=== PATIENT | female | born 1940 | race Caucasian/White ===

== ENCOUNTER → 2020-10-02 10:21 | Outpatient (CLI) | payer OTHER, SELFPAY ==
[2020-10-02 11:12] LABS: COVID19 -Nasal RAPID Negative (Negative)
== END ==
PROVIDERS: PCP Family Medicine; Visit Provider Student in an Organized Health Care Education/Training Program
DX: Z01.812 Encounter for preprocedural laboratory examination (principal); Z20.822 Contact with and (suspected) exposure to COVID-19
CPT/HCPCS: 87635

== ENCOUNTER 2020-10-05 08:01 | Observation (INO) | payer OTHER, SELFPAY ==
[2020-09-20 13:32] VITALS: BMI 30.1
[2020-10-04] VITALS (16 sets, daily range): BP systolic 138–158; BP diastolic 56–80; PULSE 70–85; RESP 10–100; TEMP 35.7–37; O2SAT 11–100; BMI 30.1
[2020-10-04] MEDS: LACTATED RINGERS 1,000 ML 42 ML IV ×2 (12:39→16:40)
--- NOTE | 2020-10-04 12:57 | SUR.PREOP ---
Pt ready for surgery. Call light in reach.
--- NOTE | 2020-10-04 13:59 | PM.PREOP ---
Pre-operative Note COVID-19 COVID-19 status: Negative Result date/Date tested (Pos, Neg/Pending): 10/02/20 Interval Note History & Physical reviewed/Exam performed by Physician: Yes Changes to H&P: No
--- NOTE | 2020-10-04 14:46 | SUR.OPER ---
Prone on spine table, head in foam head support, padded chest and pelvic supports, gel pad at knees, lower legs supported by pillows; nipples, genitalia and toes free of pressure, arms secured on foam padded arm boards at <90 degrees abduction. Tape over blanket at thigh secured to table.
[2020-10-04] MEDS: BUPIVACAINE 0.5% W/ EPI (PF) 30 ML VIAL INJ (14:55)
[2020-10-04] MEDS: BUPIVACAINE LIPOSOME 266 MG/20 ML VIAL INJ (14:56)
[2020-10-04] MEDS: CEFAZOLIN 1 GM VIAL 2 GM IV ×2 (14:57→21:53)
--- NOTE | 2020-10-04 17:50 | DI.RAD.S_ITS ---
PROCEDURE: XR LUMBAR SPINE 2-3V INDICATIONS: L3-4M L4-5 TLIF TECHNIQUE: 2 views of the lumbar spine were acquired. COMPARISON: [facility], CR, L-SPINE 4V PLUS BENDING, 12/30/2007, 9:10. FINDINGS: Spot fluoroscopic intraoperative findings demonstrating posterior spinal fixation with interbody cage grafts at the level of L3-L4 and L4-L5. Dictated by: Ty Irene M.D. on 10/04/2020 at 18:08 Approved by: Ty Irene M.D. on 10/04/2020 at 18:09
--- NOTE | 2020-10-04 18:20 | P.OP_ITS ---
Operative Date/Time/Diagnoses Date of procedure: 10/04/20 Time of procedure: 13:20 Pre-op diagnosis: 1. L3-4, L4-5 spondylolisthesis 2. Lumbar post laminectomy syndrome 3. Lumbar spondylosis with radiculopathy Post-op diagnosis: same Procedure & Clinicians Procedure: 1. L4-5, L5-S1 Postero-lateral and posterior interbody fusion 2. L4-5, L5-S1 interbody cage placement. 3. L4-5, L5-S1 decompressive laminectomy with bilateral facetecomies 4. L4-5, L5-S1 Posterior segmental instrumentation 5. [place] of bone marrow from iliac crest 6. Utilization of microsurgical technique and operating microscope Same procedure as scheduled: Yes Indications: Patient has been having chronic back pain and worsening lumbar radiculopathy. Patient failed multiple conservative management with worsening pain weakness and numbness in her lower extremity. Patient has been having difficulty performing activity of daily living. After discussing risks benefits of treatment options, patient elected proceed with surgery. Surgeon: John Wilkerson Bracelet Maker Novelty: Montana Johns Click Yes if Unassisted: No Anesthesia Type: General Operative Notes Closure Type: primary Specimen(s): none sent Prosthetic devices, grafts, tissues, transplants, or devices: Globus revolve screws, Rise Cages Applied: catheter Estimated Blood Loss (mL): 150 Blood products transfused: none Procedure in detail: Patient was seen in the preoperative area. Risks and benefits of the surgery was discussed with the patient. Informed consent was obtained from the patient and placed in the chart. Surgical site was marked. Patient was taken to the operative room. General anesthesia was administered. Prophylactic antibiotic was given to the patient less than 30 min before the incision was made. Patient was placed into a prone position on the Colin tab le. Patient's back was then prepped and draped in the sterile fashion. Time-out was performed at this time. Using AP and lateral C-arm imaging the interval between L3-4, L4-5 was identified and marked on patient's back. A 2 inch incision 2 in from midline was made on the left side first. The fascia was incised in line with skin incision. Globus MARS retractors was placed inside the incision and docked onto the L3 and L4 lamina. Using microsurgical technique and operating microscope, a L3 and L4 laminectomy and L3-4, L4-5 facetectomy was performed using a Kerrison rongeur. During the process of decompression more than 75% of bilateral L3-4, L4-5 facets were removed in order to decompress the spinal canal and the lateral recess. The L3-4, L4-5 which was fully decompressed after the laminectomy and facetectomy was completed. The disc space at L3-4, L4-5 was identified. And a total diskectomy was performed at L3-4, L4-5 level. The endplates were decorticated using a rasp and shaver. The total diskectomy and decortication was performed at L3-4, L4-5 level in order to to accomplish a L3-4, L4-5 fusion. The local bone from the laminectomy and facetectomy was saved for local bone g rafting. After the total diskectomy and decortication was completed, Trifecta bone graft material was combined with local bone that was harvested earlier. At this time, a separate skin is incision was made over the iliac crest. A Jamshidi needle was inserted into the iliac crest through a separate skin incision. 5 cc of bone marrow aspiration was obtained through the separate skin incision using a Jamshidi needle from the iliac crest. The bone marrow aspiration was combined with local bone and the Trifecta bone grafting material. The bone grafting material was placed into the L3-4, L4-5 interbody space along with two cages, one expandable cage at each level. The cages were expanded to their maximum height using the torque limiting screwdriver. At this time a mirror image incision was made on the right side. The fascia was incised in line with the skin incision. Globus MARS retractor was inserted and docked onto the L3-4, L4-5 posterolateral gutter. Using the power drill, environmental services lead ior-lateral decortication was performed at L3-4, L4-5 level until bleeding cortical bone was identified. The remaining bone grafting material was placed into the L3-4, L4-5 posterior lateral gutter he order to accomplish posterolateral fusion at the L3-4, L4-5 levels. Using the double C-arm technique, pedicle screws were placed into the L3, L4, L5 pedicles bilaterally. This was done by placing the Jamshidi needle into the pedicles, then placing the guidewires over the Jamshidi needle, and finally placing the cannulated screws over the guidewires bilaterally. After the pedicle screws were placed, 2 titanium rods was locked into the heads of the pedicle screws using locking caps and torque limiting screwdriver. Total 6 pedicles screws were placed. After all the hardware was placed, and confirmed with AP and lateral C-arm imaging, the wound was then irrigated with sterile normal saline and packed with Ray-Ren gauze for 3 min to accomplish hemostasis. After the gauze was removed the deep fascia was closed with #1 Vicryl suture. The subcutaneous layer was closed with 2-0 Vicryl. The skin was closed with skin tonya. Patient tolerated the procedure well. There were no complications. Complications: none Post-operative Condition: stable Disposition: PACU Plan for aftercare: Admit to inpatient hospital
[2020-10-04] MEDS: fentaNYL 100 MCG/2 ML INJ IV (18:25)
[2020-10-04] MEDS: HYDROMORPHONE 2 MG INJ IV (18:37)
[2020-10-04] MEDS: LORazepam 2 MG/ML INJ 0.5 MG IV (18:42)
[2020-10-04] MEDS: OXYCODONE/ACETAMINOPHEN 5/325 TABLET 1 TAB PO (18:59)
--- NOTE | 2020-10-04 19:05 | SUR.PHASEI ---
POC blood glucose at 1820 - 169.
[2020-10-04] MEDS: SODIUM CHLORIDE 0.9% 1,000 ML 100 ML IV (20:01)
[2020-10-04] MEDS: OXYCODONE IR 5 MG TABLET 10 MG PO (21:49)
[2020-10-04] MEDS: DOCUSATE 100 MG CAPSULE PO (21:49)
[2020-10-04] MEDS: MONTELUKAST 10 MG TABLET PO (21:49)
[2020-10-04] MEDS: SENNOSIDES 8.6 MG TABLET 17.2 MG PO (21:49)
[2020-10-04] MEDS: NORTRIPTYLINE 10 MG CAPSULE 20 MG PO (21:49)
[2020-10-05] VITALS (7 sets, daily range): BP systolic 120–152; BP diastolic 47–74; PULSE 64–94; RESP 14–18; TEMP 36.1–37.5; O2SAT 93–99
[2020-10-05] MEDS: hydrOXYzine pamoate 25 MG CAPSULE PO (00:17)
[2020-10-05] MEDS: HYDROMORPHONE 0.5 MG INJ IV ×3 (01:07→06:02)
[2020-10-05] MEDS: CEFAZOLIN 1 GM VIAL 2 GM IV (05:41)
[2020-10-05] MEDS: SODIUM CHLORIDE 0.9% 1,000 ML 100 ML IV (06:02)
[2020-10-05 07:20] LABS: Hemoglobin 10.2 g/dL (12.0-16.0)
--- NOTE | 2020-10-05 07:40 | P.PN_ITS ---
Subjective Subjective Date Patient Seen: 10/05/20 Time Patient Seen: 07:40 Interval history: Patient states she is doing well overall and is in mild discomfort at rest. At this time the patient denies fever, chills, nausea, chest pain, or shortness of breath. Patient reports good sensation throughout the bilateral lower extremities. She explains that she is looking forward to working with physical therapy today. Exam Vital Signs (past 8 hours): - 10/05/20 03:23 10/05/20 05:30 Temperature 97.0 F L 98.1 F Pulse Rate 83 84 Respiratory Rate 16 16 Blood Pressure 146/66 H 148/74 H Pulse Oximetry 93 93 Oxygen Delivery Method Room Air Oxygen Flow Rate 0 Narrative Exam Narrative: Pleasant 79-year-old female postop day 1. Patient is resting comfortably in bed, is in no acute distress, is alert and oriented x3. Skin is warm and dry, and the skin surrounding the incision site is free of erythema, warmth, induration, or discharge. Bandage over the incision site is free of str armand through is clean and dry. Good sensation appreciated throughout the bilateral lower extremities to light touch. Hip flexion performed bilaterally without difficulty or discomfort. Calves are soft nontender, negative Homans sign. Patient reports slight tenderness palpation along the lateral aspect of the right lower leg. Capillary refill less than 2 seconds, palpable pulses appreciated. No other signs of DVT appreciated. Const General: cooperative, healthy appearing and comfortable Resp Effort & Inspection: normal respiratory effort and able to speak in complete sentences Auscultation: clear to auscultation bilaterally Skin General: no rashes or lesions noted Objective Labs Result Diagrams: 10/05/20 06:48 Labs: Laboratory Results - last 24 hr 10/05/20 06:48 Hgb 10.2 L Hct 30.0 L PFSH Medical History Anemia Arthritis BCC (basal cell carcinoma) Depression Diastolic dysfunction Easy bruisability Eczema Esophageal abnormality HTN (hypertension) Hypothyroidism IBS (irritable bowel syndrome) Neuropathy Peripheral neuropathy Pre-diabetes Pseudogout Shingles Sinus drainage Surgical History H/O wrist surgery History of ankle surgery History of bilateral tubal ligation History of hysterectomy History of lumbar spinal fusion (1999) History of lumbar surgery (2001) History of prosthetic unicompartmental arthroplasty of right knee Hx of appendectomy Hx of arthroscopy of left knee Hx of cholecystectomy Hx of laminectomy (1999) Hx of nasal septoplasty Hx of oophorectomy Hx of sinus surgery Hx of tonsillectomy Social History household members: none Smoking Status: Former smoker alcohol intake: former Assessment & Plan Post-op Postoperative Procedures: Procedures Operation Date: 10/04/20 13:15 Actual Procedures Side Surgeon p L3-4, L4-5 TLIF w/ posterior instrumentation John Wilkerson MD Postoperative day: 1 Postoperative status: doing well Postoperative plan: ambulate Postoperative plan narrative: Patient is to continue to work on ambulation with the assistance of a front wheeled walker with physical therapy. Current pain management regimen is to be continued as it is adequately controlling patient's pain level at this time. Plan for discharge home likely today or tomorrow. Time Spent With Patient Time with patient: 15-24 minutes Quality VTE Deep Vein Thrombosis/Pulmonary Embolism Present on Admission: No
[2020-10-05] MEDS: DOCUSATE 100 MG CAPSULE PO ×2 (08:41→21:02)
[2020-10-05] MEDS: LOSARTAN 50 MG TABLET 100 MG PO (08:42)
[2020-10-05] MEDS: POTASSIUM CHLORIDE 20 MEQ TAB PO (08:42)
[2020-10-05] MEDS: LORATADINE 10 MG TABLET PO (08:43)
[2020-10-05] MEDS: FUROSEMIDE 40 MG TABLET PO (08:44)
[2020-10-05] MEDS: predniSONE 5 MG TABLET PO (08:45)
[2020-10-05] MEDS: OXYCODONE IR 5 MG TABLET 10 MG PO ×4 (08:45→21:02)
[2020-10-05] MEDS: CHLORTHALIDONE 25 MG TABLET 12.5 MG PO (08:46)
--- NOTE | 2020-10-05 09:37 | PT.IIE ---
Current Diagnoses Spondylolisthesis, lumbar region (10/04/20) Spinal stenosis, lumbar region without neurogenic claudication (10/04/20) Arthrodesis status (10/04/20) Surgery Performed Operation Date: 10/04/20 13:15 Actual Procedures p L3-4, L4-5 TLIF w/ posterior instrumentation - John Wilkerson MD Surgical History (Last Reviewed 10/05/20 @ 07:42 by [place] Johns PA-C) H/O wrist surgery History of ankle surgery History of bilateral tubal ligation History of hysterectomy History of lumbar spinal fusion (1999) History of lumbar surgery (2001) History of prosthetic unicompartmental arthroplasty of right knee Hx of appendectomy Hx of arthroscopy of left knee Hx of cholecystectomy Hx of laminectomy (1999) Hx of nasal septoplasty Hx of oophorectomy Hx of sinus surgery Hx of tonsillectomy Medical History (Last Reviewed 10/05/20 @ 07:42 by Montana Johns PA-C) Anemia Arthritis BCC (basal cell carcinoma) Depression Diastolic dysfunction Easy bruisability Eczema Esophageal abnormality HTN (hypertension) Hypothyroidism IBS (irritable bowel syndrome) Neuropathy Peripheral neuropathy Pre-diabetes Pseudogout Shingles Sinus drainage Physical Therapy Inpatient Evaluation/Re-Eval M1 PT/OT-IP Prior Functional Status Start: 10/05/20 08:40 Freq: NEEDED Status: Active Protocol: Document 10/05/20 09:37 AW (Rec: 10/05/20 11:20 AW [id number]) Medical Review Prior Functional Status Medical History Reviewed Yes Communication WNL. Pt is able to make needs known Mobility and Gait Pt reports independent ambulation without AD and denies falls Activities of Daily Living and IADL's Pt lives alone and is independent with all ADL and IADL's. She enjoys gardening Social History Household Members none Living Arrangements House Number of Floors (Floors) One Floor Number of Stairs To Enter/Railing? 2 BIANKA through the garage with a grab bar on the right side Home Environment High Toilet,Walk in Shower, Built-In Shower Seat Home Equipment Front Wheel Walker,Snag Grinder, Grab Bars In Shower Employment Status Retired Additional Social History Comment Pt has a daughter, Jessika, who lives two miles away and will stay with the patient at discharge. M2 PT-IP Current Condition Start: 10/05/20 08:40 Freq: NEEDED Status: Active Protocol: Document 10/05/20 09:37 AW (Rec: 10/05/20 11:20 AW [id number]) Physical Therapy Current Condition Current Condition Evaluation Date 10/05/20 Treatment Diagnosis L3-5 TLIF; difficulty in walking Onset Date 10/04/20 Precautions Lumbar Precautions Log Roll,No Twisting,Limit Bending,Lifting Restriction of 10 lbs,Gait Belt above Incisional Area M3 PT-IP Subjective Start: 10/05/20 08:40 Freq: NEEDED Status: Active Protocol: Document 10/05/20 09:37 AW (Rec: 10/05/20 11:20 AW [id number]) Subjective Physical Therapy Visit Type Type Initial Evaluation Visit Start Time 09:05 Visit Stop Time 09:37 Total Visit Minutes 32 Physical Therapy Visit Comments Patient Comments Pt is willing to participate with PT Patient Goals Pt hopes to return home with her daughter to assist Therapy Pain Assessment Pain When Pain Assessed During Mobility Pain Present Pain Present Pain Reported Location low back and left thigh Intensity 6 Scale Used Numeric (0 - 10) Pain Management Techniques Apply Cold,Re-positioning, Timing of Activity with Medications M4 PT-IP Mobility and Gait Start: 10/05/20 08:40 Freq: NEEDED Status: Active Protocol: Document 10/05/20 09:37 AW (Rec: 10/05/20 11:20 AW [id number]) PT-Bed Mobility Assessment Rolling Type of Rolling Roll to Right,Roll to Left Level of Assist Minimal Assistance,1 Person Assistance Supine to Sit Supine to Sit Minimal Assistance,1 Person Assistance Scooting Scooting to Edge of Bed Contact Guard Assistance PT-Transfer Assessment Sit to and From Stand Sit to and from Stand Minimal Assistance,1 Person Assistance,Use of Upper Extremities Equipment Transfer Assistive Device Gait Belt,Front Wheeled Walker Orthotic/Prosthetic Devices or Brace: No Transfers Transfer Destination Chair Transfer Technique Stand Step Pivot Transfer Ability Level of Assist Contact Guard Assistance,1 Person Assistance,Use of Upper Extremities Comments Mobility Comments Pt was sitting up in bed as PT arrived . BP 151/69 HR 85. She completed log roll to her right side and transitioned SL to sit min assist with cues for sequencing. In sitting, she complained of transient lightheadedness. After clearing, she stood from the bed min assist and used the FWW to ambulate around the room a total of 20' CGA. Gait was slow with limited foot clearance. She ultimately transferred to the chair [facility] where she was positioned with call light and all needs in reach, fresh ice pack applied to lumbar region. BP after activity was 158/75 HR 91. Gait Assessment Gait Gait Assistance Required: Contact Guard Assist Distance (Feet) 20 Able to Maintain Weight Bearing Status No During Gait Assistive Devices Assistive Device Gait Belt,Front Wheeled Walker Orthotic/Prosthetic Devices or Brace: No Gait Deviations General Gait Pattern Antalgic,Decreased Stride Length,Decreased Feet Clearance,Flexed Trunk Factors Limiting Gait Function Factors Limiting Gait Function Decreased Activity Tolerance, Decreased Sensation,Decreased Strength,Limited Range of Motion,Pain,Poor Balance Comments Gait Comments Pt ambulated with slow speed, feet not passing each other. Stair Climbing Assessment Comments Stair Climbing Comments Not assessed. PT-Balance Assessment Sitting Balance and Reactions Static Sitting Balance Ability Good Dynamic Sitting Balance Ability Good Standing Balance and Reactions Static Standing Balance Ability Good Dynamic Standing Balance Ability Fair Device Used FWW M5 PT-IP Objective Assessments Start: 10/05/20 08:40 Freq: NEEDED Status: Active Protocol: Document 10/05/20 09:37 AW (Rec: 10/05/20 11:30 AW [id number]) Orientation Orientation/Cognition Level of Alertness Alert Orientation Name,Day of Week,Place, Situation Language Function Ability No Deficits Noted Safety Awareness Understands Safety Issues Memory Description No Deficits Noted Gross Range of Motion Lower Extremity ROM Assessment Within Functional Limits Strength Lower Extremity Strength Assessment Bilaterally Impaired Hip 4-/5 Knee 4/5 Sensation Assessment Sensation Gross Sensation Right LE Impaired,Left LE Impaired Light Touch Impaired Proprioception (Position) Impaired Comments Sensation Comments Numb toes bilaterally due to peripheral neuropathy Muscle Tone Muscle Tone WNL Yes M6 PT-IP Treatment Start: 10/05/20 08:40 Freq: NEEDED Status: Active Protocol: Document 10/05/20 09:37 AW (Rec: 10/05/20 11:30 AW [id number]) Physical Therapy Treatment Education Education Provided Precautions,Weight Bearing Status,Post-Op Packet,Safety Other Treatments Other Treatment Performed Educated pt on PT plan of care , post op precautions, and safe use of FWW. M7 PT-IP Assessment and Plan Start: 10/05/20 08:40 Freq: NEEDED Status: Active Protocol: Document 10/05/20 09:37 AW (Rec: 10/05/20 11:30 AW [id number]) PT Summary Assessment and Plan Potential Rehabilitation Potential Good Status of Condition at Evaluation Evolving Summary Impairments Pain,ROM,Strength,Balance, Sensation,Bed Mobility, Transfers,Gait,Activity Tolerance Assessment Summary Molly is an 79 yo woman seen for PT evaluation on POD1 following L3-5 TLIF. She is independent in all regards at baseline and lives alone. On evaluation, she presents with BLE weakness and limited activity tolerance, requiring CGA to min assist for all mobility. Pt states her daughter will be home with her at discharge. PT will conduct caregiver training with daughter and continue to assess for safe discharge plan . At this time, planning for discharge home with family assist. Goals Bed Mobility Goal Standby Assistance Transfer Goal Standby Assistance,Front Wheeled Walker Gait Goal Standby Assistance,Front Wheel Walker Gait Distance 100 Other Goals - up/down 2 steps with R rail ascending CGA Days to Meet Goals 4 Frequency of Treatment Frequency Of Treatment Twice a Day Treatment Plan Physical Therapy Treatment Plan Bed Mobility Training,Transfer Training,Gait Training, Therapeutic Exercise,Balance Retraining,Post Op Education, Discharge Planning,Hot or Cold Pack,Neuromuscular Re-ed Other Recommendations and Next Treatment coordinate for caregiver Focus training tomorrow; progress gait training Precautions Lumbar Precautions Log Roll,No Twisting,Limit Bending,Lifting Restriction of 10 lbs,Gait Belt above Incisional Area Recommendations To Nursing Amount of Assist Needed 1 Person Assist Discharge Recommendations PT Discharge Recommendations Home with Assistance,Home with 24/7 Assist Available Transportation Needs at Discharge Private Vehicle
--- NOTE | 2020-10-05 11:04 | OT.IP.EVAL ---
Current Diagnoses Spondylolisthesis, lumbar region (10/05/20) Spinal stenosis, lumbar region without neurogenic claudication (10/05/20) Arthrodesis status (10/05/20) Surgery Performed Operation Date: 10/04/20 13:15 Actual Procedures p L3-4, L4-5 TLIF w/ posterior instrumentation - John Wilkerson MD Past Medical History (Last Reviewed 10/05/20 @ 07:42 by [place] Johns PA-C) Anemia Arthritis BCC (basal cell carcinoma) Depression Diastolic dysfunction Easy bruisability Eczema Esophageal abnormality HTN (hypertension) Hypothyroidism IBS (irritable bowel syndrome) Neuropathy Peripheral neuropathy Pre-diabetes Pseudogout Shingles Sinus drainage Surgical History (Last Reviewed 10/05/20 @ 07:42 by Montana Johns PA-C) H/O wrist surgery History of ankle surgery History of bilateral tubal ligation History of hysterectomy History of lumbar spinal fusion (1999) History of lumbar surgery (2001) History of prosthetic unicompartmental arthroplasty of right knee Hx of appendectomy Hx of arthroscopy of left knee Hx of cholecystectomy Hx of laminectomy (1999) Hx of nasal septoplasty Hx of oophorectomy Hx of sinus surgery Hx of tonsillectomy Occupational Therapy Inpatient Evaluation/Re-Eval M1 PT/OT-IP Prior Functional Status Start: 10/05/20 08:40 Freq: NEEDED Status: Active Protocol: Document 10/05/20 10:18 [facility] (Rec: 10/05/20 13:53 [facility] [id number]) Medical Review Prior Functional Status Medical History Reviewed Yes Communication WNL. Pt is able to make needs known Mobility and Gait Pt reports independent ambulation without AD and denies falls Activities of Daily Living and IADL's Pt lives alone and is independent but needing increased time with all ADL and IADL's. She enjoys gardening Social History Household Members none Living Arrangements House Number of Floors (Floors) One Floor Number of Stairs To Enter/Railing? 2 BIANKA through the garage with a grab bar on the right side Home Environment High Toilet,Walk in Shower, Built-In Shower Seat Home Equipment Front Wheel Walker,Solid Surface Fabricator, Grab Bars In Shower Employment Status Retired Additional Social History Comment Pt has a daughter, Jessika, who lives two miles away and will stay with the patient at discharge. M2 OT-IP Current Condition Start: 10/05/20 13:32 Freq: Status: Active Protocol: Document 10/05/20 10:18 [facility] (Rec: 10/05/20 13:53 [facility] [id number]) Occupational Therapy Current Condition Current Condition Evaluation Date 10/05/20 Treatment Diagnosis S/P L3-4, L4-5 TLIF, decreased mobility Diagnosis Onset Date 10/04/20 Post Operative Precautions Lumbar Precautions Log Roll,No Twisting,Limit Bending,Lifting Restriction of 10 lbs,Gait Belt above Incisional Area M3 OT- IP Subjective and Pain Start: 10/05/20 13:29 Freq: Status: Active Protocol: Document 10/05/20 10:18 [facility] (Rec: 10/05/20 13:53 [facility] [id number]) OT- Subjective Occupational Therapy Visit Type Type Initial Evaluation Visit Start Time 10:18 Visit Stop Time 11:04 Total Visit Minutes 36 Occupational Therapy Visit Comments Patient Comments Pt agreed to get up to clean her denture at the sink. Patient/Caregiver Goals TO go home. OT Pain Assessment Pain When Pain Assessed During Mobility Pain Present Pain Present Pain Reported Location low back and left thigh Intensity 6 Scale Used Numeric (0 - 10) M4 OT- IP ADL's Start: 10/05/20 13:29 Freq: Status: Active Protocol: Document 10/05/20 10:18 [facility] (Rec: 10/05/20 13:53 [facility] [id number]) OT [id number] Comments OT Self-Feeding Comments Not at meal time. OT ADL-Grooming General Evaluation Grooming Ability Standby Assistance Areas Needing Assistance Retrieving/Set-up of Grooming Items OT ADL-Oral Care General Eval Oral Care Ability Standby Assistance Areas of Assistance Retrieving/Set-Up of Items Comments Oral Care Comments Cues to best follow back precautions by spitting into a cup or hinge at her hips. OT ADL-Dressing General Eval Lower Body Dressing Ability Maximum Assistance Areas Needing Assistance Socks Comments OT Dressing Comments Pt states has a respite provider at home and does not wear socks and will just wear a gown, brief and slippers at home. OT ADL-Toileting General Evaluation Toileting Ability Total Assistance Comments OT Toileting Comments [place] still in place. OT ADL-Bathing Comments OT Bathing Comments Pt too tired at this time to attempt. M5 OT- IP IADL's Start: 10/05/20 13:29 Freq: Status: Active Protocol: Document 10/05/20 10:18 [facility] (Rec: 10/05/20 13:53 [facility] [id number]) OT-Instrumental Activities of Daily Living Home Safety Awareness Home Safety Comments Pt states will have her daughter assist her but not sure how long. When asked about having her daughter come in for caregiver training, pt states her daughter works long hours, but eventually pt did state her daughter does not work tomorrow. To try to contact pt's daughter for caregiver training tomorrow. Medication Management Medication Management Comments Pt a bit groggy and best to have her daughter provide assist and supervision for all needs initially. M6 OT- IP Functional Cognition Start: 10/05/20 13:29 Freq: Status: Active Protocol: Document 10/05/20 10:18 [facility] (Rec: 10/05/20 13:53 [facility] [id number]) Cognitive Factors Limiting Selfcare Function Cognitive Ability Level of Alertness Alert Patient Orientation Name,Place,Situation Attention Span Ability Capable of Focused Attention, Capable of Sustained Attention Ability to Follow Commands Able to Follow One Step Commands Memory Description Short Term Impaired Safety Awareness Decreased Recall of Precautions,Decreased Ability to Apply Precautions, Underestimates Need for Assistance Cognitive Comments Cognitive Assessment Comments Pt needing cues to keep the FWW in front of her at all times. Pt trying to walk back initially from the sink without the FWW and needing cues to use the FWW. Pt needing cues to incorporate her back precautions during ADl and functional mobility needs. OT- Vision and Hearing OT- Hearing Assessment OT- Hearing Assessment WFL OT- Vision Assessment Vision History Cataracts Visual Acuity Glasses All The Time M7 OT- IP Mobility and Balance Start: 10/05/20 13:29 Freq: Status: Active Protocol: Document 10/05/20 10:18 [facility] (Rec: 10/05/20 13:53 [facility] [id number]) OT- Bed Mobility Assessment Rolling Type of Rolling Roll to Right Level of Assistance Minimal Assistance Supine to Sit Supine to Sit Assist Minimal Assistance Sit to Supine Sit to Supine Assist Minimal Assistance Scooting Scooting to Edge of Bed Contact Guard Assistance OT-Transfer Assessment Sit to and From Stand Sit to and from Stand Minimal Assistance Transfers Transfer Ability Minimal Assistance Technique Transfer Destination Bed Transfer Technique Stand Step Pivot Devices Transfer Assistive Devices Gait Belt,Front Wheeled Walker Comments Mobility Comments TRACY to help get upright and assist to help get her legs back into the bed. Pt states has a recliner but only take naps in it once in awhile. TRACY with FWW to add from the sink. OT- Gait Assessment Comments Gait Ability Comments TRACY with FWW OT- Balance Assessment Sitting Balance and Reactions Static Sitting Balance Ability Good Dynamic Sitting Balance Ability Fair Standing Balance and Reactions Static Standing Balance Ability Fair M8 OT- IP Objective Assessments Start: 10/05/20 13:29 Freq: Status: Active Protocol: Document 10/05/20 10:18 [facility] (Rec: 10/05/20 13:53 [facility] [id number]) OT Gross Range of Motion Upper Extremity Range of Motion Assessment Within Functional Limits OT-Muscle Tone Assessment Muscle Tone WNL Yes M9 OT- IP Assessment and Plan Start: 10/05/20 13:29 Freq: Status: Active Protocol: Document 10/05/20 10:18 [facility] (Rec: 10/05/20 13:53 [facility] [id number]) OT Summary Assessment and Plan Potential Rehabilitation Potential Good Analytic Complexity at Evaluation Low Summary OT Impairments Pain,Strength,Balance, Functional Cognition, Functional Mobility,Grooming, Dressing,Toileting,Bathing, Toilet Transfers,Shower Transfers,Activity Tolerance Progress Towards Goals Progressing Toward Goals Assessment Summary Pt low complexity and main barriers are steps, decreased safety awareness awareness of back precautions and now needing assist for all ADl and functional mobility needs. Per pt a bit vague that her daughter will stay with her but not able to say if pt's daughter will come in for caregiver training. Touched base with PT and to get in touch with pt's daughter regarding caregiver training. Pending caregiver training and progress, recommend home with assist. Goals Grooming Goal Independent Dressing Goal Independent Toileting Goal Independent Bathing Goal Independent Toilet Transfer Goal Independent Shower Transfer Goal Independent Patient/Caregiver Education Goal Demonstrate Post-Op Precautions,Caregiver Independent Assisting Patient Days to Meet Goals 7 Frequency of Treatment Frequency Of Treatment Once a Day Treatment Plan OT Treatment Plan ADL Training,Functional Cognition Training,Functional Mobility,Patient/Family Education,Discharge Planning Other Treatment Recommendations and Next shower, caregiver training Treatment Focus Discharge Recommendations OT Discharge Recommendations Home with Assistance Home Equipment Needs shower chair, hand held shower spray Transportation Needs at Discharge Private Vehicle
[2020-10-05] MEDS: LEVOTHYROXINE 137 MCG TABLET PO (11:30)
[2020-10-05] MEDS: OLOPATADINE 0.1% OPHTH DROPS 5 ML 1 EACH EYE-BOTH ×2 (11:31→21:01)
--- NOTE | 2020-10-05 13:03 | CM.DANOTE ---
Addendum entered by Alma Herring LPN 10/05/20 13:27: Have now left a vm on Farideh'delia cell: [phone] with brief update on concerns noted below and need for some clarification. Spoke then with OT Keyona who had just worked with pt. Keyona noted that she and PT Olga Lidia had the same ? re how much time Farideh had to be with pt post d/c and need for her to do caregiver training prior to d/c. Both noted concerns re the vagueness of pt's overall plan and need to be sure it is as stated by this 79 year old patient. P: follow. Original Note: Discharge Planning/Care Management DCP: assessment: case received, EMR reviewed and met now with pt after noting PT eval for today. Introduced self and role. Pt is an 79 year old female who admitted yesterday for a scheduled spinal lumbar TLIF. Admission status: SDC to OBS: as of 10/05. Payer: [employer] Pt confirms that she does live alone in a single level home but that her daughter Farideh Cloud will be staying with her after d/c. [place] She did see ortho GRAZYNA Boyle today. Says she understands that she won't d/c today and says she does not know how long the orthopedic team will have her in the hospital. This d/c facility planner did advise her that based on GRAZYNA Boyle's progress note of today d/c is likely to be tomorrow. She plans to update her daughter. OT/PT are working with pt. Will follow....at this time plan is for d/c to home setting with assist of Jessika. (pt says she does not know how long Jessika will stay with her. She works. Advanced directive, confirm from FAMILY Start: 10/04/20 19:44 Freq: Q24H Status: Active Protocol: Document 10/04/20 19:52 RL (Rec: 10/04/20 19:52 RL [id number]) Advance Directive, confirm on record Time 19:52 Person contacted Farideh Cloud Copy received No CM Discharge Assessment Start: 10/05/20 11:20 Freq: Status: Active Protocol: Document 10/05/20 13:01 ITV (Rec: 10/05/20 13:02 ITV [id number]) Discharge Planning Assessment Advance Directives? Yes Advance Directives on File No History Provided By Patient,Medical Record Prior Living Arrangements House Household Members none Independent with ADL's Yes Is patient alert and oriented? Yes Caregiver for Another No DME Already Rented / Owned Other Comment has a Life Line device Discharge Plan Home Review Status In Process Pre-Anesthesia Assessment Start: 09/20/20 13:32 Freq: Status: Active Protocol: Document 09/20/20 13:32 CAB (Rec: 09/20/20 14:37 CAB [id number]) Pre-Anesthesia Assessment Patient Information Reviewed Via Phone Assessment Assessment Completed With Patient Comment labs/EKG done 09/19 per pt, not avail, COVID screen @ Primary Care Provider Moses Hampton Seen Specialist in Last 12 Months Yes Specialist Seen Supervisor General,Orthopedist, Other Comment Rheumatology Primary Language Maori Seam Stayer Required No Height 160.02 cm Weight 77.111 kg Body Mass Index (BMI) 30.1 Hearing Ability Normal Visual Assist Glasses Dentition Type Partial- Upper Barriers to Learning None Hx Anesthesia Reactions Yes: Extreme PONV Additional comment *Allergy to marcaine-Rash* Hx Family Anesthesia Reaction No Hx Malignant Hyperthermia No Hx Blood Transfusions No Anesthesia Review Requested No alcohol intake former Smoking Status Former smoker Tobacco type cigarettes how long ago did patient quit smoking Quit 1996 Substance Use Type does not use Pain Present Pain Reported Musculoskeletal Symptoms Abnormal Gait,Back Pain, Difficulty Walking,Joint Pain, Neck Pain,Numbness,Radiating Pain into Limb,Tingling History of Falling (Recent or History of No ) Patient is completely paralyzed or No completely immobile Mental Status Oriented to own ability Is patient on oxygen? No Does patient have MEADOWS/SOB No Hx Sleep Apnea No Currently Taking a Beta Leander No Can You Climb a Flight of Stairs Without Yes SOB Hx Chest Pain No Hx SOB No Hx Syncope or Dizziness Yes: Occasional dizziness since april Anti-Coagulant Therapy No Has a Protective Services Case Worker No Cardiac Testing No Hx Pacemaker/ICD No Pacemaker Rep Required? No Cardiac Clearance Received Not Applicable Diet Type At Home Diabetic dysphagia No Bladder Pattern Incontinent,Incontinent, Stress Urinary Catheter Present No Hx Urinary Self Catheterization No Diabetes No: Pre-diabetes Patient No Lactating No Hx Drug Resistant Organism No Presence of External or Internal Medical Yes: Rt knee Devices Have you had any close contact with No someone diagnosed with COVID-19? Marital Status Single Lives With none Prior Living Arrangements House Number of Floors (Floors) One Floor Support System Child/Children Does the Patient Have Assistance After Yes Surgery Patient Discharge Plan Description Return Home Comment Pt advised 2 day length of stay per surgeon Feels Safe in Current Environment Yes Been Physically Hurt or Threatened By a No Person in Current Environment Do you have thoughts of harming yourself None or others? Are you currently considering suicide? No Do you have a plan to hurt yourself or No Plan others? Do You Have Any Spiritual Beliefs That No May Affect Your HC Choices? Do You Have Any Cultural Practices That No May Affect Your HC Choices? Who Can We Speak to About Patient's Care Family, friends Identifying Code for Release of Patient Declines to issue Information Health Care Proxy/Next of Kin Jessika (daughter) Health Care Proxy Emergency Contact Name Jessika (daughter) Alexandre (son) Emergency Contact Phone Number Jessika: [phone] Alexandre: [phone] Advance Directives? Yes Advance Directives on File No Requested Patient Bring Advanced Yes Directives DOS Power of Timber Estimator Yes Power of Timber Estimator Name Jessika (daughter) Power of Timber Estimator PAC Instructions Do not shave/clip surgical site,Durable medical equipment ,Medications to take/avoid, Nasal antibiotic,No ETOH/ petroleum product on skin DOS, NPO,Pre-surgical wash,Sensory aids,Sturdy shoes/comfortable clothes,Do not bring valuables and remove jewelry
--- NOTE | 2020-10-05 14:20 | PT.IPTN ---
Current Diagnoses Spondylolisthesis, lumbar region (10/05/20) Spinal stenosis, lumbar region without neurogenic claudication (10/05/20) Arthrodesis status (10/05/20) Surgery Performed Operation Date: 10/04/20 13:15 Actual Procedures p L3-4, L4-5 TLIF w/ posterior instrumentation - John Wilkerson MD Physical Therapy Treatment Note M2 PT-IP Current Condition Start: 10/05/20 08:40 Freq: NEEDED Status: Active Protocol: Document 10/05/20 09:37 AW (Rec: 10/05/20 11:20 AW [id number]) Physical Therapy Current Condition Current Condition Evaluation Date 10/05/20 Treatment Diagnosis L3-5 TLIF; difficulty in walking Onset Date 10/04/20 Precautions Lumbar Precautions Log Roll,No Twisting,Limit Bending,Lifting Restriction of 10 lbs,Gait Belt above Incisional Area M3 PT-IP Subjective Start: 10/05/20 08:40 Freq: NEEDED Status: Active Protocol: Document 10/05/20 14:20 AW (Rec: 10/05/20 15:38 AW [id number]) Subjective Physical Therapy Visit Type Type Treatment Note Visit Start Time 13:56 Visit Stop Time 14:20 Total Visit Minutes 24 Notes Pt was able to tolerate sitting ~2 hours this AM Number of TRACK REPAIRER HELPER Visits 0 Physical Therapy Visit Comments Patient Comments Pt is willing to participate with PT Therapy Pain Assessment Pain When Pain Assessed During Mobility Pain Present Pain Present Pain Reported Location low back and left thigh Intensity 6 Scale Used Numeric (0 - 10) Pain Management Techniques Re-positioning,Timing of Activity with Medications M4 PT-IP Mobility and Gait Start: 10/05/20 08:40 Freq: NEEDED Status: Active Protocol: Document 10/05/20 14:20 AW (Rec: 10/05/20 15:38 AW [id number]) PT-Bed Mobility Assessment Rolling Type of Rolling Log Rolling,Roll to Right Level of Assist Contact Guard Assistance Supine to Sit Supine to Sit Contact Guard Assistance Sit to Supine Sit to Supine Contact Guard Assistance PT-Transfer Assessment Sit to and From Stand Sit to and from Stand Contact Guard Assistance,Use of Upper Extremities Equipment Transfer Assistive Device Gait Belt,Front Wheeled Walker Orthotic/Prosthetic Devices or Brace: No Transfers Transfer Destination Bed Transfer Technique Stand Step Pivot Transfer Ability Level of Assist Contact Guard Assistance Comments Mobility Comments Pt was lying in the bed as PT arrived. She completed log roll to her right side and SL to sit CGA with extra time. She was able to stand from the bed CGA and used the FWW to ambulate in the halls a total of 140 feet without rest break SBA to CGA. On return to the room, pt requested return to bed so she could nap. With CGA , pt completed reverse log roll and was positioned with call light, all needs in reach . Gait Assessment Gait Gait Assistance Required: Contact Guard Assist Distance (Feet) 140 Able to Maintain Weight Bearing Status Yes During Gait Assistive Devices Assistive Device Gait Belt,Front Wheeled Walker Orthotic/Prosthetic Devices or Brace: No Gait Deviations General Gait Pattern Antalgic,Decreased Stride Length,Decreased Feet Clearance,Flexed Trunk Factors Limiting Gait Function Factors Limiting Gait Function Decreased Activity Tolerance, Decreased Sensation,Decreased Strength,Limited Range of Motion,Pain,Poor Balance Comments Gait Comments Feet now passing each other in gait. Speed was 0.3 m/s. Stair Climbing Assessment Comments Stair Climbing Comments Not assessed. PT-Balance Assessment Sitting Balance and Reactions Static Sitting Balance Ability Good Dynamic Sitting Balance Ability Good Standing Balance and Reactions Static Standing Balance Ability Good Dynamic Standing Balance Ability Fair Device Used FWW M5 PT-IP Objective Assessments Start: 10/05/20 08:40 Freq: NEEDED Status: Active Protocol: Document 10/05/20 09:37 AW (Rec: 10/05/20 11:30 AW [id number]) Orientation Orientation/Cognition Level of Alertness Alert Orientation Name,Day of Week,Place, Situation Language Function Ability No Deficits Noted Safety Awareness Understands Safety Issues Memory Description No Deficits Noted Gross Range of Motion Lower Extremity ROM Assessment Within Functional Limits Strength Lower Extremity Strength Assessment Bilaterally Impaired Hip 4-/5 Knee 4/5 Sensation Assessment Sensation Gross Sensation Right LE Impaired,Left LE Impaired Light Touch Impaired Proprioception (Position) Impaired Comments Sensation Comments Numb toes bilaterally due to peripheral neuropathy Muscle Tone Muscle Tone WNL Yes M6 PT-IP Treatment Start: 10/05/20 08:40 Freq: NEEDED Status: Active Protocol: Document 10/05/20 14:20 AW (Rec: 10/05/20 15:38 AW [id number]) Physical Therapy Treatment Education Education Provided Precautions,Safety M7 PT-IP Assessment and Plan Start: 10/05/20 08:40 Freq: NEEDED Status: Active Protocol: Document 10/05/20 14:20 AW (Rec: 10/05/20 15:38 AW [id number]) PT Summary Assessment and Plan Summary Impairments Pain,ROM,Strength,Balance, Sensation,Bed Mobility, Transfers,Gait,Activity Tolerance Progress Towards Goals Progressing Toward Goals Assessment Summary Molly improved her mobility, requiring CGA for all mobility and increasing her gait distance. PT will conduct caregiver training with pt's daughter, Jessika, some time after 10:00 Friday morning, anticipating she will be able to discharge home with family support. Goals Bed Mobility Goal Standby Assistance Transfer Goal Standby Assistance,Front Wheeled Walker Gait Goal Standby Assistance,Front Wheel Walker Gait Distance 100 Other Goals - up/down 2 steps with R rail ascending CGA Days to Meet Goals 4 Frequency of Treatment Frequency Of Treatment Twice a Day Treatment Plan Physical Therapy Treatment Plan Bed Mobility Training,Transfer Training,Gait Training, Therapeutic Exercise,Balance Retraining,Post Op Education, Discharge Planning,Hot or Cold Pack,Neuromuscular Re-ed Other Recommendations and Next Treatment gait; caregiver training; Focus stairs Precautions Lumbar Precautions Log Roll,No Twisting,Limit Bending,Lifting Restriction of 10 lbs,Gait Belt above Incisional Area Recommendations To Nursing Amount of Assist Needed 1 Person Assist Discharge Recommendations PT Discharge Recommendations Home with Assistance,Home with 09/12 Assist Available Transportation Needs at Discharge Private Vehicle
[2020-10-05] MEDS: MONTELUKAST 10 MG TABLET PO (21:02)
[2020-10-05] MEDS: SODIUM CHLORIDE 0.9% FLUSH 10 ML IV (21:02)
[2020-10-05] MEDS: NORTRIPTYLINE 10 MG CAPSULE 20 MG PO (21:02)
[2020-10-05] MEDS: SENNOSIDES 8.6 MG TABLET 17.2 MG PO (21:02)
[2020-10-06] MEDS: OXYCODONE IR 5 MG TABLET 10 MG PO ×3 (01:49→10:41)
[2020-10-06 01:54] VITALS: BP 139/52; PULSE 99; RESP 16; TEMP 36.6; O2SAT 97
[2020-10-06 06:34] VITALS: BP 139/71; PULSE 88; RESP 14; TEMP 36.7; O2SAT 98
--- NOTE | 2020-10-06 07:43 | P.DS_ITS ---
History of Present Illness History of Present Illness Date Patient Seen: 10/06/20 Time Patient Seen: 07:43 Chief complaint: Translaminar Interbody Fusion/Laminotomy *OPB* Narrative: Patient's pain is moderate to severe. Patient states her pain is controlled with current pain meds. Denies fever or chills. No nausea or vomiting. Patient does have assistance at home. Discharge Providers Provider Date of admission: 10/05/20 08:01 Discharge Date: 10/06/20 Primary care physician: Moses Hampton MD Consults: 10/04/20 19:31 Consult to Occupational Therapy Evaluate & Treat Comment: Physician Instructions: Evaluate and treat Consult to Physical Therapy Evaluate & Treat Comment: Physician Instructions: Evaluate and Treat Discharge provider: Jeramie Joy PA-C Summary Hospital Course Discharge Diagnosis: 1. L3-4, L4-5 spondylolisthesis 2. Lumbar post laminectomy syndrome 3. Lumbar spondylosis with radiculopathy Hospital Course: 1. L4-5, L5-S1 Postero-lateral and posterior interbody fusion 2. L4-5, L5-S1 interbody cage placement. 3. L4-5, L5-S1 decompressive laminectomy with bilateral facetecomies 4. L4-5, L5-S1 Posterior segmental instrumentation 5. [place] of bone marrow from iliac crest 6. Utilization of microsurgical technique and operating microscope Same procedure as scheduled: Yes Indications: Patient has been having chronic back pain and worsening lumbar radiculopathy. Patient failed multiple conservative management with worsening pain weakness and numbness in her lower extremity. Patient has been having difficulty performing activity of daily living. After discussing risks benefits of treatment options, patient elected proceed with surgery. Surgeon: John Wilkerson Director Of Compensation: [place] [employer] Click Yes if Unassisted: No Anesthesia Type: General Operative Notes Closure Type: primary Specimen(s): none sent Prosthetic devices, grafts, tissues, transplants, or devices: Globus revolve screws, Rise Cages Applied: catheter Estimated Blood Loss (mL): 150 Blood products transfused: none Patient admitted to the hospital for the above-mentioned procedure. Patient consented to the same. Patient taken to the operating room underwent lumbar fusion October 04, 2020. Patient back in her room recovering well as in stable condition. Patient will be discharged home today in stable condition. Status at Discharge Cognitive/behavioral status at discharge: at baseline, oriented Functional status at discharge: uses cane/walker Overall status at discharge: patient is progressing back to baseline Time Spent with Patient Time spent: Less than 30 minutes Exam Vital Signs (past 8 hours): - 10/06/20 01:54 10/06/20 06:34 Temperature 97.9 F 98.0 F Pulse Rate 99 H 88 Respiratory Rate 16 14 Blood Pressure 139/52 L 139/71 Pulse Oximetry 97 98 Oxygen Delivery Method Room Air Oxygen Flow Rate 0 Narrative Exam Narrative: Pleasant 79-year-old female resting comfortably in bed in no apparent distress. Dressing shows some scant moisture otherwise intact. Motor functions intact bilateral lower extremities. Sensation grossly intact to light touch bilateral lower extremities. Objective Labs Result Diagrams: 10/05/20 06:48 PFSH Medical History Anemia Arthritis BCC (basal cell carcinoma) Depression Diastolic dysfunction Easy bruisability Eczema Esophageal abnormality HTN (hypertension) Hypothyroidism IBS (irritable bowel syndrome) Neuropathy Peripheral neuropathy Pre-diabetes Pseudogout Shingles Sinus drainage Surgical History H/O wrist surgery History of ankle surgery History of bilateral tubal ligation History of hysterectomy History of lumbar spinal fusion (1999) History of lumbar surgery (2001) History of prosthetic unicompartmental arthroplasty of right knee Hx of appendectomy Hx of arthroscopy of left knee Hx of cholecystectomy Hx of laminectomy (1999) Hx of nasal septoplasty Hx of oophorectomy Hx of sinus surgery Hx of tonsillectomy Social History household members: none Smoking Status: Former smoker alcohol intake: former Discharge Assessment & Plan Assessment and Plan Assessment: Patient progressing as expected status post lumbar fusion on October 04, 2020. Plan of Treatment: Ambulate as tolerated. Limit bending twisting and lifting. Discharge home today after physical therapy in stable condition. Discharge Plan Discharge Plan Patient Disposition: Home Discharge orders & Medications Prescriptions: New acetaminophen 325 mg Tablet 650 mg PO Q6HR PRN (Reason: Pain, Mild (1-3)) Qty: 60 RF: 0 docusate sodium [DOK] 100 mg Capsule 100 mg PO BID Qty: 20 RF: 0 oxycodone 5 mg Tablet 10 mg PO Q3HR PRN (Reason: Pain, Severe (7-10)) Qty: 60 RF: 0 Continued furosemide 40 mg Tablet 40 mg PO DAILY RF: 0 levothyroxine 137 mcg Tablet 137 mcg PO DAILY RF: 0 prednisone 5 mg Tablet 5 mg PO DAILY RF: 0 chlorthalidone 25 mg Tablet 12.5 mg PO DAILY RF: 0 nortriptyline 10 mg Capsule 20 mg PO BEDTIME RF: 0 olopatadine 0.1 % Drops 1 drp EYE-BOTH BID RF: 0 montelukast 10 mg Tablet 10 mg PO BEDTIME RF: 0 azelastine 137 mcg (0.1 %) Aerosol,[place] 2 spray INTRANASAL BID RF: 0 epinephrine 0.3 mg/0.3 mL Auto-Injector 0.3 mg IM Q5-15M PRN (Reason: Allergic Reaction) RF: 0 losartan 100 mg Tablet 100 mg PO DAILY RF: 0 potassium chloride 20 mEq Tablet Extended Release 20 meq PO DAILY RF: 0 fexofenadine 180 mg Tablet 180 mg PO DAILY RF: 0 Discontinued tramadol 50 mg Tablet 50 - 100 mg PO TID PRN (Reason: Pain) RF: 0 Follow up/Referrals: John Wilkerson MD [Physician] - (2 weeks) Moses Hampton MD [Primary Care Provider] - Diet/Activity/Treatments Diet: Diet as Tolerated Activity: Limit bending, twisting, lifting Cold/Heat Therapy: Apply ice as needed Skin/Wound/Dressing Care Report to your healthcare provider any signs of infection, such as:: chills, fever, increased pain, unusual drainage and unusual redness Dressing: Keep clean and dry Visit Report/Discharge Packet Instructions: DI for Prescription Opioid Use, DI for Transforaminal Lumbar Int erbody Fusion Stand Alone Forms: Surgery Discharge Discharge Data Primary Care Provider: Moses Hampton Attending Provider: John Wilkerson Quality VTE Deep Vein Thrombosis/Pulmonary Embolism Present on Admission: No
[2020-10-06 08:18] VITALS: BP 147/59; PULSE 89; RESP 16; TEMP 36.4; O2SAT 97
[2020-10-06] MEDS: CHLORTHALIDONE 25 MG TABLET 12.5 MG PO (08:29)
[2020-10-06 08:31] VITALS: BP 147/59; PULSE 89
[2020-10-06] MEDS: FUROSEMIDE 40 MG TABLET PO (08:31)
[2020-10-06] MEDS: LOSARTAN 50 MG TABLET 100 MG PO (08:31)
[2020-10-06] MEDS: LORATADINE 10 MG TABLET PO (08:31)
[2020-10-06] MEDS: DOCUSATE 100 MG CAPSULE PO (08:31)
[2020-10-06] MEDS: predniSONE 5 MG TABLET PO (08:32)
[2020-10-06] MEDS: POTASSIUM CHLORIDE 20 MEQ TAB PO (08:32)
[2020-10-06] MEDS: ACETAMINOPHEN 325 MG TABLET 650 MG PO (08:32)
[2020-10-06] MEDS: OLOPATADINE 0.1% OPHTH DROPS 5 ML 1 EACH EYE-BOTH (08:34)
--- NOTE | 2020-10-06 08:45 | CM.DPC ---
DCP: continued: Ortho PA Jeramie Martinez is here and has d/c'd pt to home setting once she has had more PT. Training session planned with daughter Tanmay morning >1000. P: home today. Will follow prn
--- NOTE | 2020-10-06 10:30 | PT.IPTN ---
Current Diagnoses Spondylolisthesis, lumbar region (10/05/20) Spinal stenosis, lumbar region without neurogenic claudication (10/05/20) Arthrodesis status (10/05/20) Surgery Performed Operation Date: 10/04/20 13:15 Actual Procedures p L3-4, L4-5 TLIF w/ posterior instrumentation - John Wilkerson MD Physical Therapy Treatment Note M2 PT-IP Current Condition Start: 10/05/20 08:40 Freq: NEEDED Status: Active Protocol: Document 10/05/20 09:37 AW (Rec: 10/05/20 11:20 AW [id number]) Physical Therapy Current Condition Current Condition Evaluation Date 10/05/20 Treatment Diagnosis L3-5 TLIF; difficulty in walking Onset Date 10/04/20 Precautions Lumbar Precautions Log Roll,No Twisting,Limit Bending,Lifting Restriction of 10 lbs,Gait Belt above Incisional Area M3 PT-IP Subjective Start: 10/05/20 08:40 Freq: NEEDED Status: Active Protocol: Document 10/06/20 09:58 CLB (Rec: 10/06/20 10:46 CLB [id number]) Subjective Physical Therapy Visit Type Type Treatment Note Visit Start Time 09:58 Visit Stop Time 10:30 Total Visit Minutes 32 Notes Daughter Jessika present for CG training. Number of DRAWBRIDGE TENDER Visits 1 Physical Therapy Visit Comments Patient Comments Pt is willing to participate with PT Therapy Pain Assessment Pain When Pain Assessed During Mobility Pain Present Pain Present Pain Reported Location low back and left thigh Intensity 7 Scale Used Numeric (0 - 10) Pain Management Techniques Re-positioning,Timing of Activity with Medications M4 PT-IP Mobility and Gait Start: 10/05/20 08:40 Freq: NEEDED Status: Active Protocol: Document 10/06/20 09:58 CLB (Rec: 10/06/20 10:46 CLB [id number]) PT-Bed Mobility Assessment Rolling Type of Rolling Log Rolling,Roll to Right Level of Assist Contact Guard Assistance,1 Person Assistance Supine to Sit Supine to Sit Minimal Assistance,1 Person Assistance Sit to Supine Sit to Supine Standby Assistance,1 Person Assistance Scooting Scooting to Edge of Bed Standby Assistance PT-Transfer Assessment Sit to and From Stand Sit to and from Stand Standby Assistance,1 Person Assistance Equipment Transfer Assistive Device Gait Belt,Front Wheeled Walker Orthotic/Prosthetic Devices or Brace: No Transfers Transfer Destination Bed Transfer Technique Stand Step Pivot Transfer Ability Level of Assist Standby Assistance Comments Mobility Comments Pt daughter assisted with all mobility. Pt LR to right CGA and sidelying to sit Min A. Pt 's daughter educated on shady [id number]. Pt stood SBA requiring cues for hand placement for safety. Pt then ambulated in jacobs to therapy stairs using small step thru gait pattern and daughter providing SBA. Pt climbed three steps with right rail CGA from daughter. Pt ambulated back to room. Pt sat with cues for hand placement for safety and completed reverse LR SBA. Pt left in bed with all needs within reach and daughter present. Gait Assessment Gait Gait Assistance Required: Standby Assistance,1 Person Assist Distance (Feet) 200 Able to Maintain Weight Bearing Status Yes During Gait Assistive Devices Assistive Device Gait Belt,Front Wheeled Walker Orthotic/Prosthetic Devices or Brace: No Gait Deviations General Gait Pattern Antalgic,Decreased Stride Length,Decreased Feet Clearance,Flexed Trunk Factors Limiting Gait Function Factors Limiting Gait Function Decreased Activity Tolerance, Decreased Sensation,Decreased Strength,Limited Range of Motion,Pain,Poor Balance Comments Gait Comments see mobility comments Stair Climbing Assessment Evaluation Level of Assist On Stairs Contact Guard Assistance,1 Person Assistance Devices Stair Climbing Assistive Devices Right Railing Technique/Endurance Stair Climbing Direction Ascend and Descend Stair Climbing Technique Step to Step Number of Steps Climbed 3 Stair Climbing Set # Repetitions (reps) 1 M5 PT-IP Objective Assessments Start: 10/05/20 08:40 Freq: NEEDED Status: Active Protocol: Document 10/05/20 09:37 AW (Rec: 10/05/20 11:30 AW [id number]) Orientation Orientation/Cognition Level of Alertness Alert Orientation Name,Day of Week,Place, Situation Language Function Ability No Deficits Noted Safety Awareness Understands Safety Issues Memory Description No Deficits Noted Gross Range of Motion Lower Extremity ROM Assessment Within Functional Limits Strength Lower Extremity Strength Assessment Bilaterally Impaired Hip 4-/5 Knee 4/5 Sensation Assessment Sensation Gross Sensation Right LE Impaired,Left LE Impaired Light Touch Impaired Proprioception (Position) Impaired Comments Sensation Comments Numb toes bilaterally due to peripheral neuropathy Muscle Tone Muscle Tone WNL Yes M6 PT-IP Treatment Start: 10/05/20 08:40 Freq: NEEDED Status: Active Protocol: Document 10/05/20 14:20 AW (Rec: 10/05/20 15:38 AW [id number]) Physical Therapy Treatment Education Education Provided Precautions,Safety M7 PT-IP Assessment and Plan Start: 10/05/20 08:40 Freq: NEEDED Status: Active Protocol: Document 10/06/20 09:58 CLB (Rec: 10/06/20 10:46 CLB [id number]) PT Summary Assessment and Plan Summary Impairments Pain,ROM,Strength,Balance, Sensation,Bed Mobility, Transfers,Gait,Activity Tolerance Progress Towards Goals Progressing Toward Goals Assessment Summary Pt continues to improve with all mobility and daughter is able to assist pt safely. Pt able to increase gait distance with improved gait quality and climb stairs while daughter provided CGA. Pt able to recall 3/3 back precautions. Pt able to d/c home with daughters assist when medically stable. Goals Bed Mobility Goal Standby Assistance Transfer Goal Standby Assistance,Front Wheeled Walker Gait Goal Standby Assistance,Front Wheel Walker Gait Distance 100 Other Goals - up/down 2 steps with R rail ascending CGA Days to Meet Goals 4 Frequency of Treatment Frequency Of Treatment Twice a Day Treatment Plan Physical Therapy Treatment Plan Bed Mobility Training,Transfer Training,Gait Training, Therapeutic Exercise,Balance Retraining,Post Op Education, Discharge Planning,Hot or Cold Pack,Neuromuscular Re-ed Precautions Lumbar Precautions Log Roll,No Twisting,Limit Bending,Lifting Restriction of 10 lbs,Gait Belt above Incisional Area Recommendations To Nursing Amount of Assist Needed 1 Person Assist Discharge Recommendations PT Discharge Recommendations Home with Assistance,Home with 24/ Assist Available Transportation Needs at Discharge Private Vehicle
[2020-10-06] MEDS: LEVOTHYROXINE 137 MCG TABLET PO (10:41)
--- NOTE | 2020-10-06 10:58 | OT.IP.TRT ---
Current Diagnoses Spondylolisthesis, lumbar region (10/05/20) Spinal stenosis, lumbar region without neurogenic claudication (10/05/20) Arthrodesis status (10/05/20) Surgery Performed Operation Date: 10/04/20 13:15 Actual Procedures p L3-4, L4-5 TLIF w/ posterior instrumentation - John Wilkerson MD Occupational Therapy Treatment Note M2 OT-IP Current Condition Start: 10/05/20 13:32 Freq: Status: Active Protocol: Document 10/05/20 10:18 [facility] (Rec: 10/05/20 13:53 [facility] [id number]) Occupational Therapy Current Condition Current Condition Evaluation Date 10/05/20 Treatment Diagnosis S/P L3-4, L4-5 TLIF, decreased mobility Diagnosis Onset Date 10/04/20 Post Operative Precautions Lumbar Precautions Log Roll,No Twisting,Limit Bending,Lifting Restriction of 10 lbs,Gait Belt above Incisional Area M3 OT- IP Subjective and Pain Start: 10/05/20 13:29 Freq: Status: Active Protocol: Document 10/06/20 10:40 [facility] (Rec: 10/06/20 12:05 [facility] [id number]) OT- Subjective Occupational Therapy Visit Type Type Treatment Note Visit Start Time 10:40 Visit Stop Time 10:58 Total Visit Minutes 18 Occupational Therapy Visit Comments Patient Comments Pt's daughter present for caregiver training. Pt states would rather shower at home, but agreed to get dressed. Patient/Caregiver Goals TO go home. OT Pain Assessment Pain When Pain Assessed At Rest Pain Present Pain Present Denied Pain M4 OT- IP ADL's Start: 10/05/20 13:29 Freq: Status: Active Protocol: Document 10/06/20 10:40 [facility] (Rec: 10/06/20 12:05 [facility] [id number]) OT [id number] Comments OT Self-Feeding Comments Not at meal time. OT ADL-Dressing General Eval Lower Body Dressing Ability Moderate Assistance Areas Needing Assistance Underpants/Brief,Pants/Shorts, Socks Comments OT Dressing Comments Pt initially stating that she can just put on her brief and forgetting that she is not suppose to bend over and then realizing that she will have to use the cyber ops planner to assist. Pt's daughter having good awareness of pt's back precautions and able to remind pt. Pt then just wanting her daughter to assist her with her needs. M6 OT- IP Functional Cognition Start: 10/05/20 13:29 Freq: Status: Active Protocol: Document 10/06/20 10:40 [facility] (Rec: 10/06/20 12:05 [facility] [id number]) Cognitive Factors Limiting Selfcare Function Cognitive Ability Level of Alertness Alert Patient Orientation Name,Place,Situation Attention Span Ability Capable of Focused Attention, Capable of Sustained Attention Ability to Follow Commands Able to Follow One Step Commands Memory Description Short Term Impaired Safety Awareness Decreased Ability to Apply Precautions,Underestimates Need for Assistance Cognitive Comments Cognitive Assessment Comments Pt still needing MOD vc to incorporate back precautions especially for dressing needs. Pt's daughter aware to provide supervision as needed and able to remind her of back precautions. Pt needing safety reminders to push up from the bed when coming to stand versus just grabbing the FWW. M7 OT- IP Mobility and Balance Start: 10/05/20 13:29 Freq: Status: Active Protocol: Document 10/06/20 10:40 [facility] (Rec: 10/06/20 12:05 [facility] [id number]) OT- Bed Mobility Assessment Rolling Type of Rolling Roll to Right Level of Assistance Minimal Assistance Supine to Sit Supine to Sit Assist Minimal Assistance OT-Transfer Assessment Sit to and From Stand Sit to and from Stand Contact Guard Assistance Transfers Transfer Ability Contact Guard Assistance Technique Transfer Destination Bed Transfer Technique Stand Step Pivot Devices Transfer Assistive Devices Gait Belt,Front Wheeled Walker Comments Mobility Comments Pt's daughter able to safety assist pt for bed mobility needs. Did suggest that pt may benefit from a bed rail at home to increase the ease and safety to get up. OT- Balance Assessment Sitting Balance and Reactions Static Sitting Balance Ability Good Dynamic Sitting Balance Ability Fair Standing Balance and Reactions Static Standing Balance Ability Fair M8 OT- IP Objective Assessments Start: 10/05/20 13:29 Freq: Status: Active Protocol: Document 10/05/20 10:18 [facility] (Rec: 10/05/20 13:53 [facility] [id number]) OT Gross Range of Motion Upper Extremity Range of Motion Assessment Within Functional Limits OT-Muscle Tone Assessment Muscle Tone WNL Yes M9 OT- IP Assessment and Plan Start: 10/05/20 13:29 Freq: Status: Active Protocol: Document 10/06/20 10:40 [facility] (Rec: 10/06/20 12:05 [facility] [id number]) OT Summary Assessment and Plan Potential Rehabilitation Potential Good Analytic Complexity at Evaluation Low Summary Progress Towards Goals Progressing Toward Goals Assessment Summary Pt not wanting to shower at this time and aware would be best to get a shower chair and HHSP as needed. Pt's daughter present for caregiver training and able to show good safety and understanding for how to assist her mother for all ADl's and mobility needs while incorporating back precautions. Goals Grooming Goal Independent Dressing Goal Independent Toileting Goal Independent Bathing Goal Independent Toilet Transfer Goal Independent Shower Transfer Goal Independent Patient/Caregiver Education Goal Demonstrate Post-Op Precautions Days to Meet Goals 5 Frequency of Treatment Frequency Of Treatment Once a Day Treatment Plan OT Treatment Plan ADL Training,Functional Cognition Training,Functional Mobility,Patient/Family Education,Discharge Planning Discharge Recommendations OT Discharge Recommendations Home with 09/12 Assist Available Home Equipment Needs shower chair, hand held shower spray Transportation Needs at Discharge Private Vehicle
--- NOTE | 2020-10-06 12:36 | PC.NURSE ---
Pt A&O x3, pleasant. Able to demonstrate correct log roll and situp in bed and transfers to chair, and bathroom with FWW. Pt reports pain 7/10 to back but states well controlled with oxycodone 10mg PRN, able to participate with therapy and cleared for discharge home this a.m. Pt able to void without difficulty s/p lyons removal. Daughter arrived to assist with discharge and transporting patient. Patient and daughter verbalize and agree to discharge instructions, medications, activity, wound care and follow up appointments. Pt is knowledgeable about following up with her PT appointments. RN escorted patient to private car with daughter via w/ch with all of her belongings, prescription and home med.
== END 2020-10-06 11:00 | disposition home or self-care (01) ==
LOC: OR 11:54 → AC 11:54
PROVIDERS: Admitting Provider Orthopaedic Surgery Orthopaedic Surgery of the Spine; PCP Family Medicine; Referring Provider Orthopaedic Surgery Orthopaedic Surgery of the Spine; Visit Provider Orthopaedic Surgery Orthopaedic Surgery of the Spine
PROC: (CPT 22633; principal; 2020-10-04 13:15)
DX: M43.16 Spondylolisthesis, lumbar region (principal); M48.061 Spinal stenosis, lumbar region without neurogenic claudication; M47.16 Other spondylosis with myelopathy, lumbar region; M54.16 Radiculopathy, lumbar region; Z98.1 Arthrodesis status; R73.03 Prediabetes
CPT/HCPCS: 22633; 63048; 22634; 20939; 22853 ×2; 22842; 63047; 36415; 72100; 76000; 82962; 85014; 85018; 97116; 97161; 97165; 97530; 97535; C1776; G0378; C9290; J0690; J1170; J2060; J3010